=== PATIENT | male | born 1970 | race Caucasian/White ===

== ENCOUNTER 2022-01-03 08:10 | Inpatient (IN) | payer MEDICAID ==
[2022-01-02 18:15] VITALS: BP 131/95
[~2022-01-03] VITALS: Ht 185.4 cm; Wt 91.8 kg
[2022-01-03] VITALS (25 sets, daily range): BP systolic 111–159; BP diastolic 59–103
[2022-01-03 09:39] LABS: BASOPHILS # (AUTO) 0.1 X10'3 (0-0.2); BASOPHILS % (AUTO) 0.8 % (0-1); EOSINOPHILS # (AUTO) 0.1 X10'3 (0-0.9); EOSINOPHILS % (AUTO) 1.1 % (0-6); LYMPHOCYTES # (AUTO) 2.6 X10'3 (1.1-4.8); LYMPHOCYTES % (AUTO) 25.7 % (21-51); MEAN CORPUSCULAR HEMOGLOBIN 30.3 PG (27.0-31.0); MEAN CORPUSCULAR HGB CONC 33.5 g/dL (33.0-36.5); MEAN CORPUSCULAR VOLUME 90.6 FL (78-98); MEAN PLATELET VOLUME 7.3 FL (7.4-10.4); MONOCYTES # (AUTO) 0.8 X10'3 (0-0.9); MONOCYTES % (AUTO) 8.2 % (2-12); NEUTROPHILS # (AUTO) 6.4 X10'3 (1.8-7.7); NEUTROPHILS % (AUTO) 64.2 % (42-75); PRE OP HEMOGLOBIN 16.1 g/dL (14.0-17.9); PRE OP PLATELET COUNT 359 X10'3 (140-440)
[2022-01-03 09:50] LABS: ALBUMIN 3.6 G/DL (3.4-5.0); ALKALINE PHOSPHATASE 89 IU/L (46-116); BLOOD UREA NITROGEN 16 MG/DL (7-18); BUN/CREATININE RATIO 17.4 (5.4-32.0); CALCIUM 8.6 MG/DL (8.5-10.1); CREATININE 0.92 MG/DL (0.60-1.10); PRE OP ALT 22 U/L (30-65); PRE OP AST 17 U/L (10-37); PRE OP BILIRUB, TOTAL 0.7 MG/DL (0.0-1.0); PRE OP GLUCOSE 95 MG/DL (70-104); TOTAL CARBON DIOXIDE 26.2 MMOL/L (24-32); TOTAL PROTEIN 7.3 G/DL (6.4-8.2); eGFR 87 ML/MIN
[2022-01-03] MEDS ORDERED: cefazolin/dext.iso 2gm/50ml IV ONE (10:03)
[2022-01-03] MEDS ORDERED: famotidine 20mg tablet PO ONE (10:03)
[2022-01-03] MEDS ORDERED: ringers solution, lacted 1,000 ML IV SCH ×2 (10:03→13:40)
[2022-01-03 10:49] LABS: CHLORIDE 105 MMOL/L (99-107); PRE OP ANION GAP 9 (8-16); PRE OP POTASSIUM 3.9 MMOL/L (3.4-5.1); PRE OP SODIUM 140 MMOL/L (135-145)
[2022-01-03] MEDS ORDERED: BUPIVAcaine 0.5% inj/PF 30 ML ONE (12:42)
[2022-01-03] MEDS ORDERED: midazolam 1 mg/ML 2ml injection ONE (12:49)
[2022-01-03] MEDS ORDERED: rocuronium 10mg/ml inj IV ONE (12:49)
[2022-01-03] MEDS ORDERED: fentaNYL /PF 50mcg/ml 5ml ampule ONE ×2 (12:49→14:39)
[2022-01-03] MEDS ORDERED: propofol inj 20 ML IV ONE (12:49)
[2022-01-03] MEDS ORDERED: dexamethasone sod phosphate 4mg/ml inj. ONE (13:10)
[2022-01-03] MEDS ORDERED: BUPIVAcaine 0.5% inj/PF 30 ml vial IJ ONE (13:13)
[2022-01-03] MEDS ORDERED: proCHLORperazine 10 MG/2 ml inj IV PRN (13:40)
[2022-01-03] MEDS ORDERED: meperidine/PF 25mg/ml syringe IV PRN ×3 (13:40)
[2022-01-03] MEDS ORDERED: ondansetron/PF 4mg/2ml inj IV PRN ×2 (13:40→15:30)
[2022-01-03] MEDS ORDERED: morphine 4 MG/ML inj SYRINge IV PRN (13:40)
[2022-01-03] MEDS ORDERED: morphine 2 MG/ML inj. syringe IV PRN (13:40)
[2022-01-03] MEDS ORDERED: labetalol 20mg/4ml (5mg/ml) syringe IV PRN (13:40)
[2022-01-03] MEDS ORDERED: ceFOXitin 1000 MG inj ONE ×2 (14:41)
[2022-01-03] MEDS ORDERED: ondansetron/PF 4mg/2ml inj ONE (14:56)
[2022-01-03] MEDS ORDERED: neostigmine methylsulfate 1 MG/ML 10ml vial ONE (14:56)
[2022-01-03] MEDS ORDERED: glycopyrrolate 0.2mg/ml inj ONE (14:56)
--- NOTE | 2022-01-03 15:20 | NUR ---
Received from OR via [facility], accompanied by Anesthesiologist NAINA and report given by Anesthesiolgist. PT MOANING AND THRASHING AROUND ON [facility], MEDICATE FOR PAIN BY ANESTHESIA. NO NAUSEA AT THIS TIME. PT HAS 5 TROCAR SITES ON ABDOMEN, EULALIA W/ MUMTAZ AND MIDLINE INCISION COVERED BY [place] DSG CDI. VSS, SL HTN. SCDS ON.
[2022-01-03] MEDS ORDERED: HYDROcodone/acetaminophen 10/325mg tab PO PRN (15:30)
[2022-01-03] MEDS ORDERED: Potassium Cl inj 20 MEQ in ringers solution, lacted 1,000 ML IV SCH (15:30)
[2022-01-03] MEDS ORDERED: metoclopramide 5 mg/ml inj IV PRN (15:30)
[2022-01-03] MEDS ORDERED: HYDROcodone/acetaminophen 5mg/325mg tablet PO PRN (15:30)
[2022-01-03] MEDS: PCA WASTE DOCUMENTATION MC SCH (15:55)
[2022-01-03] MEDS ORDERED: ceFAZolin 1GM/D5W- ADD-VANTAGE 50 ML IV SCH (16:00)
[2022-01-03] MEDS ORDERED: NO HOME MEDS (16:14)
[2022-01-03] MEDS ORDERED: HYDROmorph/NS 0.2 mg/ml PCA 100 ML IV SCH (17:00)
[2022-01-03] MEDS: HYDROmorph/NS 0.2 mg/ml PCA 100 ML IV SCH ×4 (17:32→23:00)
[2022-01-03] MEDS ORDERED: acetaminophen 1,000mg/100ml IV 100 ML IV ONE (17:45)
[2022-01-03] MEDS ORDERED: ketorolac trometh. 30mg/ml inj. IV ONE (17:45)
--- NOTE | 2022-01-03 17:50 | NUR ---
PT WILL BE STAYING OVERNIGHT DUE TO LENGTH OF SURGERY AND NEED FOR PAIN CONTROL. RECD ORDERS FROM DR VALLADARES. IV TYLENOL AND TORADOL GIVEN, DILUADID CADD STARTED. PT WAS EDUCATED ON ITS USE, HE VERBALIZED UNDERSTANDING. VSS, TOLERATING SIPS OF WATER. PT TO REMAIN ON CLEAR LIQUIDS PER DR VALLADARES. REPORT GIVEN TO RECEIVING RN, PT TRANSFERRED TO ORTHO FLOOR IN STABLE CONDITION WITH 1 BAG OF BELONGINGS. PT WAS NOTIFIED HE WAS STAYING, SHE HAS HIS SUITCASE.
--- NOTE | 2022-01-03 18:47 | NUR ---
Problems reprioritized. Patient report given, questions answered & plan of care reviewed with SUNNY Hooper.
[2022-01-03] MEDS: potassium 20mEq/D5LR 1,000 ML IV SCH (23:45)
[2022-01-03] MEDS: ceFAZolin 1GM/D5W- ADD-VANTAGE 50 ML IV SCH (23:48)
[2022-01-04] MEDS: HYDROmorph/NS 0.2 mg/ml PCA 100 ML IV SCH ×5 (01:00→09:00)
[2022-01-04 02:00] VITALS: BP 134/65
[2022-01-04] MEDS: potassium 20mEq/D5LR 1,000 ML IV SCH ×2 (04:56→05:26)
[2022-01-04 06:00] VITALS: BP 121/68
--- NOTE | 2022-01-04 06:48 | NUR ---
Received report assume care with Student nurse Pt in bed awake no reports of needs. CADD pump on, IV fluids running as ordered. Call light in reach, bed low, rails up x3
[2022-01-04] MEDS: ceFAZolin 1GM/D5W- ADD-VANTAGE 50 ML IV SCH (09:20)
[2022-01-04 10:00] VITALS: BP 116/76
[2022-01-04] MEDS: PCA WASTE DOCUMENTATION MC SCH (10:30)
--- NOTE | 2022-01-04 13:15 | NUR ---
patient discharged, PIV removed. Wheelchair to lobby by staff at side
== END 2022-01-04 13:00 | disposition home or self-care (01) | DRG 230 ==
LOC: PAS 08:10 → OBSVTOIN 15:33 → ORTHO 4S 15:33
PROVIDERS: ADMIT Surgery; ATTEND Surgery
PROC: 0DB80ZZ Excision of Small Intestine, Open Approach (ICD-10-PCS; 2022-01-03)
PROC: 0DBU0ZZ Excision of Omentum, Open Approach (ICD-10-PCS; 2022-01-03)
PROC: 0WUF0JZ Supplement Abdominal Wall with Synthetic Substitute, Open Approach (ICD-10-PCS; 2022-01-03)
PROC: 0WQF0ZZ Repair Abdominal Wall, Open Approach (ICD-10-PCS; 2022-01-03)
PROC: 0DNW4ZZ Release Peritoneum, Percutaneous Endoscopic Approach (ICD-10-PCS; principal; 2022-01-03 12:54)
DX: K43.0 Incisional hernia with obstruction, without gangrene (principal); F17.210 Nicotine dependence, cigarettes, uncomplicated; Z20.822 Contact with and (suspected) exposure to COVID-19; Z86.711 Personal history of pulmonary embolism; Z88.8 Allergy status to other drugs, medicaments and biological substances
CPT/HCPCS: 36415; 80053; 82948; 85025; 87635; 93005; A4618; A7000; C9803; G0378; J0131; J0690; J0694; J1100; J1170; J1885; J2250; J2405; J2704; J2710; J3010; J3480; J3490; J7120; S0020